=== PATIENT | male | born 1995 | race Caucasian/White ===

== ENCOUNTER 2017-07-29 23:37 | Emergency (ER) | payer SELFPAY ==
[~2017-07-29] VITALS: Ht 185.4 cm; Wt 128.8 kg
[2017-07-30 00:55] LABS: BASOPHIL % 0.3 % (0-2); PLATELET COUNT 289 x10^3mcL (130-400)
[2017-07-30 01:06] LABS: CALCIUM 9.9 mg/dL (8.5-10.1); CARBON DIOXIDE 29.2 mmol/L (21-32); CHLORIDE SERUM 101 mmol/L (98-107); CREATININE SERUM 0.9 mg/dL (0.7-1.3); GFR1 > 60 mL/min; GLUCOSE SERUM 91 mg/dL (74-106); POTASSIUM SERUM 3.6 mmol/L (3.5-5.1); SODIUM SERUM 138 mmol/L (136-145)
[2017-07-30 01:10] LABS: ALBUMIN 3.7 g/dL (3.4-5.0); ALKALINE PHOSPHATASE 81 U/L (46-116); ALT/SGPT 38 U/L (16-63); AMYLASE 45 U/L (25-115); AST/SGOT 25 U/L (15-37); BILIRUBIN TOTAL 1.5 mg/dL (0.20-1.00); LIPASE 112 IU/L (73-393); TOTAL PROTEIN, SERUM 7.8 g/dL (6.4-8.2)
[2017-07-30 02:48] VITALS: BP 128/70
== END 2017-07-30 02:48 | disposition home or self-care (01) ==
LOC: ED 23:37
PROVIDERS: Emergency Medicine
DX: K52.9 Noninfective gastroenteritis and colitis, unspecified (principal)
CPT/HCPCS: 83880; J2405; J3010; J7030